=== PATIENT | male | born 1985 | race Caucasian/White ===

== ENCOUNTER 2016-08-17 19:12 | Emergency (ER) | payer SELFPAY ==
[~2016-08-17 19:12] MED LIST: AMIODARONE HCL 150 MG/3 ML VIAL IV ONE; DOPamine INJ PREMIX 500 ML IV ONE; EPINEPHrine HCL (1:10,000) 1 MG/10 ML SYRINGE IV ONE; MAGNESIUM SULFATE 40 MEQ/10 ML VIAL IV ONE; SODIUM BICARBONATE 8.4% INJ 50 MEQ/50 ML SYR IV ONE
[2016-08-17] MEDS ORDERED: SODIUM CHLORIDE 0.9% FLUSH 10 ML FLUSH IVF PRN (19:30)
--- NOTE | 2016-08-17 19:30 | PD ---
HPI Chief Complaint: Cardiac arrest Time Seen by Provider: 19:30 Travel History International Travel<30 days: No Contact w/Intl Traveler<30days: No Traveled to known affect area: No History of Present Illness HPI 31-year-old male came to the emergency room brought by EMS emergently in cardiac arrest. As per EMS patient is from [facility] and checked into a hotel when he got nauseous and started vomiting. While he was throwing up in the bathroom he passed out, fell and hit his head. His sister who is a nurse was at the scene and started CPR when she found out that there was no pulse. 911 was called and the initial rhythm upon their arrival was a V. fib. Patient was shocked 3 times by EMS. The last shot delivered was 20 minutes prior to coming to the ER. Patient had received multiple rounds of epinephrine and the last one was 4 minutes prior to coming in. As per the sister to the halver machine operator there is extensive cardiac history on both mother and father site. Patient uses marijuana and used it this morning. Family also mentioned that patient had a very severe sepsis in January for thousand 16 where he nearly . Patient never regained pulse by EMS. Down time was 7 6 PM and CPR was initiated pretty much as soon as patient arrested. [facility] Past Medical History Narrative Medical Unobtainable. As per the family to the paramedics patient had sepsis in January. Extensive family history on both sides of cardiac disease, use of marijuana. Social History Tobacco Use: Yes Allergies-Medications (Allergen,Severity, Reaction): Coded Allergies: UNOBTAINABLE (Unverified , 08/17/16) Comments Unobtainable Narrative Medication Unknown Review of Systems Except as stated in HPI: all other systems reviewed are Neg Physical Exam Narrative GENERAL: Boarded, unresponsive, intubated, CPR in progress SKIN: Pale and cold HEAD: Contusion on the mid frontal aspect, glabella EYES: Pupils equal and round. 5 mm and fixed. No scleral icterus. No injection or drainage. ENT: No nasal bleeding or discharge. Mucous membranes pink and moist. NECK: Trachea midline. No JVD. ET tube CARDIOVASCULAR: Pulseless RESPIRATORY: No spontaneous respiratory effort. Equal air entry upon bagging through the ET tube GASTROINTESTINAL: Abdomen soft, non-tender, nondistended. Hepatic and splenic margins not palpable. MUSCULOSKELETAL: No obvious deformities. No clubbing. No cyanosis. No edema. NEUROLOGICAL: GCS of 3 PSYCHIATRIC: Unable to assess Data Data Orders Sodium Chloride 0.9% Flush (Ns Flush) (08/17/16 19:30) Phenylephrine Inj (Neosynephrine Inj) (08/17/16 20:45) Terbutaline Inj (Brethine Inj) (08/17/16 19:45) Electrocardiogram (08/17/16 19:03) MDM Medical Decision Making Medical Screen Exam Complete: Yes Emergency Medical Condition: Yes Medical Record Reviewed: Yes Interpretation(s) Twelve-lead EKG was reviewed by me. Tachycardia, high lateral and anteroseptal ST elevation with reciprocal depressions. Heart rate of 166 bpm. Differential Diagnosis Massive HI, massive PE, intracranial bleed Narrative Course 7:36 PM CPR was resumed and continued as soon as patient came in. Multiple rounds of Epi and other medications as per ACLS protocol was given. Please refer to the nurse's code sheet. Patient was also shocked multiple times for V. fib. Patient had brief ROSC when an EKG was obtained and a STEMI alert was called. Dr. Sandoval discussed patient condition with Dr. Agosto who was on- call for cardiology. Dr. Agosto wanted the patient's head to be scanned given the head injury history. However patient could not be taken to the scanner table since he was extremely unstable and coded again. At 7:23 PM patient was pronounced by me after multiple rounds of epinephrine and defibrillation and no response. Patient had blood coming out from the ET tube and given the prolonged cardiac arrest it was medically futile to have any quality of life. Awaiting to speak with the family. Critical Care Narrative Aggregate critical care time was 45 minutes. Time to perform other separately billable procedures was not included in the critical care time. My time did not include minutes spent treating any other patients simultaneously or on activities that did not directly contribute to the patient's treatment. The services I provided to this patient were to treat and/or prevent clinically significant deterioration that could result in: CPR I provided critical care services requiring my management, as noted below: Chart data review, documentation time, medication orders and management, vital sign assessments/reviewing monitor data, ordering and reviewing lab tests, ordering and interpreting/reviewing x-rays and diagnostic studies, care of the patient and discussion of the patient with the admitting physicians. Procedures Procedure Narrative CENTRAL VENOUS LINE: The site was prepped with ChloraPrep. It was infiltrated with 1% lidocaine plain. The deep vein was cannulated using normal Seldinger technique. A triple lumen central line was placed in the right subclavian site and secured with simple interrupted suture. This was done emergently while the patient was coding to get a better access. EKG Prior to Arrival: No Physician Communication Physician Communication Dr. Agosto Diagnosis Primary Impression: Cardiac arrest Disposition: 20 Condition: Vickie Hutton MD Aug 17, 2016 19:30 Primary Impression: Cardiac arrest Disposition: 20 Condition: Vickie Hutton MD Aug 17, 2016 19:30
--- NOTE | 2016-08-17 19:44 | PD ---
Data Data Orders Ct Brain W/O Iv Contrast(Rout) (08/17/16 ) Ct Pulmonary Angiogram (08/17/16 ) Basic Metabolic Panel (Bmp) (08/17/16 19:18) Ckmb (Isoenzyme) Profile (08/17/16 19:18) Complete Blood Count With Diff (08/17/16 19:18) Magnesium (Mg) (08/17/16 19:18) Prothrombin Time / Inr (Pt) (08/17/16 19:18) Act Partial Throm Time (Ptt) (08/17/16 19:18) Troponin I (08/17/16 19:18) Chest, Single Ap (08/17/16 19:18) Ecg Monitoring (08/17/16 19:18) Iv Access Insert/Monitor (08/17/16 19:18) Oximetry (08/17/16 19:18) Oxygen Administration (08/17/16 19:18) Sodium Chloride 0.9% Flush (Ns Flush) (08/17/16 19:30) MDM Supervised Visit with ANDREA: No Narrative Course I assisted Dr. Hutton during resuscitative efforts as well as communicated with on-call strip cutter Dr. Agosto after STEMI alert was called. See Dr. Hutton's note for further details. 7:08 PM: After STEMI alert was called and discussed the case with on-call strip cutter Dr. Agosto. At this time the patient had a ROSC. He was sent a copy of the patient's EKG. Given patient's history of head trauma, he would like head CT prior to making decision on whether to take the patient to the Software Implementation Specialist. Shortly after my conversation with on-call strip cutter Dr. Agosto, the patient once again lost pulses and CPR/ACLS protocol was once again initiated. Patient again had a brief ROSC, and was about to be taken to CT scan for not only CT head, but also CT pulmonary angiogram, however the patient once again had lost pulses. ET tube was noted to be filled with blood. Patient pronounced at 1923. Diagnosis Primary Impression: Cardiac arrest Disposition: 20 Condition: Leonardo Sandoval MD Aug 17, 2016 19:44
[2016-08-17] MEDS ORDERED: TERBUTALINE INJ 1 MG/ML AMP SQ PRN (19:45)
[2016-08-17] MEDS ORDERED: PHENYLEPHRINE INJ 40 MG in DEXTROSE 5% IN WATE 500 ML INJ 496 ML IV SCH ×2 (20:45)
--- NOTE | 2016-08-18 05:03 | EKG ---
Date Performed: 08/17/2016 Time Performed: 19:03:24 PTAGE: 31 years EKG: Baseline artifact present Probable ATRIAL FIBRILLATION WITH RAPID VENTRICULAR RESPONSE WITH ABERRANT CONDUCTION OR VENTRICULAR PREMATURE COMPLEXES MARKED LEFT AXIS DEVIATION MODERATE INTRAVENT RICULAR CONDUCTION DELAY MARKED ST ELEVATION, CONSIDER ANTERIOR INJURY Marked ST depressions in the i nferior leads ACUTE [place] WARNING: DATA QUALITY MAY AFFECT INTERPRETATION INTERPRETATION BASED ON A DEFAULT AGE OF 40 YEARS NO PREVIOUS TRACING DOCTOR: Js Amador Interpretating Date/Time 08/18/2016 05:02:25
== END 2016-08-17 21:30 | disposition expired ==
LOC: PHED 19:12
DX: I46.9 Cardiac arrest, cause unspecified (principal)
CPT/HCPCS: 36556; 92950; 93005; 99291; J0171; J0282; J1265; J3475